=== PATIENT | female | born 1950 | race African-American/Black ===

== ENCOUNTER 2017-04-20 14:37 | Emergency (ER) | payer MEDICARE, MEDICAID ==
[~2017-04-20] VITALS: Ht 167.6 cm; Wt 68.0 kg
[2017-04-20 15:10] VITALS: BP 140/68
--- NOTE | 2017-04-20 15:35 | Emergency Room Report ---
History of Present Illness General Chief Complaint: General Complaint Source: Patient Present Illness HPI Patient is brought in by EMS. Apparently, the patient had taken a nap. She states that she did take her medications prior to take a nap today. She states that her daughter had arrived home and was having difficulty arousing her. So she did call EMS. EMS report that she had low blood pressure. Of note, on arrival she was normotensive. The patient also had an episode of diarrhea. She denies fever or chills. She states she does have a mild headache. She denies chest pain or shortness of. She denies abdominal pain. She has no other complaints. Allergies: Coded Allergies: No Known Allergies (Unverified , 04/20/17) Patient History Past Medical History: see triage record, DM, HTN Social History: Denies: alcohol use, drug use, smoking Now: No Reviewed Nursing Documentation: PMH: Agreed, PSxH: Agreed Nursing Documentation-PMH Hx Hypertension: Yes Hx Diabetes: Yes Review of Systems All Other Systems: negative except mentioned in HPI Physical Exam Vital Signs Date Time Temp Pulse Resp B/P Pulse Ox O2 Delivery O2 Flow Rate FiO2 04/20/17 14:30 96.8 60 20 140/68 97 Room Air Sp02 EP Interpretation: reviewed, normal General Appearance: no apparent distress, alert, GCS 15, non-toxic Head: normocephalic, atraumatic Eyes: bilateral eye PERRL, bilateral eye normal inspection ENT: hearing grossly normal, normal pharynx, no angioedema, normal voice Neck: full range of motion, supple/symm/no masses Respiratory: chest non-tender, lungs clear, normal breath sounds, speaking full sentences Cardiovascular #1: regular rate, rhythm, no edema Gastrointestinal: normal bowel sounds, non tender, soft, non-distended, no guarding, no rebound Rectal: deferred Musculoskeletal: back normal, normal range of motion, non-tender Neurologic: alert, oriented x3, responsive, speech normal, other - 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 However, my evaluation the patient is alert and oriented. The patient did undergo laboratory workup to include CBC, CMP, urinalysis which showed. . . patient also underwent CT of the head given a history of possible altered mental status and this showed. . . there was report of hypotension, however, this was not identified here in the emergency department. Labs Test 04/20/17 15:00 04/20/17 15:30 White Blood Count 5.7 K/UL (4.8-10.8) Red Blood Count 4.00 M/UL (4.20-5.40) Hemoglobin 12.6 G/DL (12.0-16.0) Hematocrit 36.9 % (37.0-47.0) Mean Corpuscular Volume 92 FL (80-99) Mean Corpuscular Hemoglobin 31.6 PG (27.0-31.0) Mean Corpuscular Hemoglobin Concent 34.2 G/DL (32.0-36.0) Red Cell Distribution Width 12.2 % (11.6-14.8) Platelet Count 217 K/UL (150-450) Mean Platelet Volume 7.4 FL (6.5-10.1) Neutrophils (%) (Auto) 61.1 % (45.0-75.0) Lymphocytes (%) (Auto) 29.3 % (20.0-45.0) Monocytes (%) (Auto) 8.1 % (1.0-10.0) Eosinophils (%) (Auto) 0.5 % (0.0-3.0) Basophils (%) (Auto) 1.0 % (0.0-2.0) Sodium Level 144 mEQ/L (135-145) Potassium Level 4.0 mEQ/L (3.4-4.9) Chloride Level 103 mEQ/L (98-107) Carbon Dioxide Level 29 mEQ/L (20-30) Anion Gap 12 (5-15) Blood Urea Nitrogen 25 mg/dL (7-23) Creatinine 1.0 mg/dL (0.5-0.9) Estimat Glomerular Filtration Rate > 60 mL/min (>60) Glucose Level 171 mg/dL (74-106) Lactic Acid Level 0.80 mmol/L (0.66-2.22) Calcium Level 10.0 mg/dL (8.6-10.2) Total Bilirubin < 0.2 mg/dL (0.0-1.2) Aspartate Amino Transf (AST/SGOT) 17 U/L (5-40) Alanine Aminotransferase (ALT/SGPT) 9 U/L (3-33) Alkaline Phosphatase 68 U/L (35-104) Total Protein 6.7 g/dL (6.6-8.7) Albumin 3.8 g/dL (3.5-5.2) Globulin 2.9 g/dL Albumin/Globulin Ratio 1.3 (1.0-2.7) Lipase 32 U/L (< 60) Urine Color Yellow Urine Appearance Clear Urine pH 6 (4.5-8.0) Urine Specific [place] 1.020 (1.005-1.035) Urine Protein 2+ (NEGATIVE) Urine Glucose (UA) Negative (NEGATIVE) Urine Ketones 1+ (NEGATIVE) Urine Occult Blood Negative (NEGATIVE) Urine Nitrite Negative (NEGATIVE) Urine Bilirubin Negative (NEGATIVE) Urine Urobilinogen 1 MG/DL (0.0-1.0) Urine Leukocyte Esterase Negative (NEGATIVE) Urine RBC 0-2 /HPF (0 - 2) Urine WBC 0-2 /HPF (0 - 2) Urine Squamous Epithelial Cells Few /LPF (NONE/OCC) Urine Bacteria Few /HPF (NONE) Urine Fine Granular Casts 0-2 /LPF (NONE) EKG Diagnostic Results Rate: bradycardiac Rhythm: other ST Segments: no acute changes Other Impression S.bradycardia Rhythm Strip Diag. Results EP Interpretation: yes Rate: 50's Rhythm: no PVC's, no ectopy Other Impression S.shannon Last Vital Signs Date Time Temp Pulse Resp B/P Pulse Ox O2 Delivery O2 Flow Rate FiO2 04/20/17 15:10 96.8 58 20 140/68 97 Room Air Status: improved Disposition: HOME, SELF-CARE Condition: Improved Referrals: NOT CHOSEN [facility]/,REFERRING (PCP) EMERY MCGOWAN D.O. Apr 20, 2017 15:35
[2017-04-20 15:52] LABS: APPEARANCE,URINE CLEAR; KETONES,URINE 1+ (NEGATIVE); LEUKOCYTE ESTERASE ,URINE NEGATIVE (NEGATIVE); NITRITE,URINE NEGATIVE (NEGATIVE); PH,URINE 6 (4.5-8.0); PROTEIN,URINE 2+ (NEGATIVE); UROBILINOGEN,URINE 1 MG/DL (0.0-1.0)
[2017-04-20 16:00] VITALS: BP 168/88
[2017-04-20 16:02] LABS: ALANINE AMINOTRANSFERASE 9 U/L (3-33); ALBUMIN/GLOBULIN RATIO 1.3 (1.0-2.7); ANION GAP 12 (5-15); ASPARTATE AMINO TRANSFERASE 17 U/L (5-40); CARBON DIOXIDE 29 mEQ/L (20-30); CHLORIDE 103 mEQ/L (98-107); GLOMERULAR FILTRATION RATE > 60 mL/min (>60); HEMOLYSIS 4; LIPASE 32 U/L (< 60); SODIUM 144 mEQ/L (135-145); TOTAL PROTEIN 6.7 g/dL (6.6-8.7)
[2017-04-20 16:25] LABS: RBC,URINE 0-2 /HPF (0 - 2); WBC,URINE 0-2 /HPF (0 - 2)
[2017-04-20 16:26] LABS: BACTERIA,URINE FEW /HPF; FINE GRANULAR CASTS,URINE 0-2 /LPF; SQUAMOUS EPITHELIAL CELL,UR FEW /LPF (NONE/OCC)
[2017-04-20 16:49] LABS: EOSINOPHILS % (AUTO) 0.5 % (0.0-3.0); LYMPHOCYTES % (AUTO) 29.3 % (20.0-45.0); MEAN CORPUSCULAR HEMOGLOBIN 31.6 PG (27.0-31.0); MEAN CORPUSCULAR HGB CONC 34.2 G/DL (32.0-36.0); MEAN CORPUSCULAR VOLUME 92 FL (80-99); MEAN PLATELET VOLUME 7.4 FL (6.5-10.1); MONOCYTES % (AUTO) 8.1 % (1.0-10.0); NEUTROPHILS % (AUTO) 61.1 % (45.0-75.0); PLATELET COUNT 217 K/UL (150-450); RED CELL DISTRIBUTION WIDTH 12.2 % (11.6-14.8); WHITE BLOOD COUNT 5.7 K/UL (4.8-10.8)
[2017-04-20 17:00] VITALS: BP 138/60
[2017-04-20 18:00] VITALS: BP 142/66
[2017-04-20 19:29] VITALS: BP 142/66
--- NOTE | 2017-04-21 08:39 | Diagnostic Imaging Report ---
Indications: Altered mental status Technique: Spiral acquisitions obtained through the brain. Angled axial and coronal 5 x 5 mm slices were reconstructed. Total dose length product 1407 mGycm. CTDI vol(s) 70 mGy. Dose reduction achieved using automated exposure control Comparison: None Findings: There is an area of encephalomalacia involving the left occipital and posterior parietal lobes. There is an old right mast radiata deep white matter lacunar infarct. Old lacunar infarct is also seen just above the right caudate head. There is mild age-related enlargement of the ventricles and extra axial CSF spaces. Visualized orbits and sinuses are unremarkable. The calvarium is intact. Impression: Chronic and age-related changes, as described, including multiple old infarcts Negative for acute intracranial bleed or mass effect The CT scanner at [facility] is accredited by the [employer] and the scans are performed using protocols designed to limit radiation exposure to as low as reasonably achievable to attain images of sufficient resolution adequate for diagnostic evaluation.
--- NOTE | 2017-04-21 18:13 | Cardiology Report ---
APPROVED REPORT EKG Measurement Heart [id number] Sinus bradycardia with premature atrial complexes Nonspecific T wave abnormality Abnormal ECG
== END 2017-04-20 19:42 | disposition home or self-care (01) ==
LOC: EDBD 14:37 → EMR 15:12
DX: R19.7 Diarrhea, unspecified (principal); R51 Headache; I10 Essential (primary) hypertension; E11.9 Type 2 diabetes mellitus without complications; R00.1 Bradycardia, unspecified
CPT/HCPCS: 36415; 70450; 80053; 81003; 82962; 83605; 83690; 85025; 87040; 93005; 96360